=== PATIENT | male | born 1990 | race Caucasian/White ===

== ENCOUNTER 2019-05-01 05:24 | Emergency (ER) | payer OTHER ==
--- NOTE | 2019-05-01 05:39 | PDOC ---
History of Present Illness - General Chief Complaint: Pain, Acute Stated Complaint: GROIN PAIN Time Seen by Provider: 05/01/19 05:39 History Source: Patient Exam Limitations: No Limitations - History of Present Illness Initial Comments: 05/01/19 06:09 Edward Humphries is a 29y previously healthy M presenting w scrotal pain. 11pm last night, he was laying in bed and had sudden onset L inguinal and L scrotal pain. In November 2018, had similar L inguinal pain lasting 4 months after exercising at gym. Did not take anything for pain. Denies recent trauma, masturbation, sexual activity. Denies fever, vomiting, chest pain, SOB, pyuria, dyuria, hemauria, diarrhea, constipation. Past History - Past Medical History Allergies/Adverse Reactions: Allergies Allergy/AdvReac Type Severity Reaction Status Date / Time No Known Allergies Allergy Verified 10/29/15 18:51 Home Medications: Ambulatory Orders Naproxen [Naprosyn -] 500 mg PO BID #14 tablet 10/29/15 COPD: No - Immunization History Immunization Up to Date: Yes - Suicide/Smoking/Psychosocial Hx Smoking History: Never smoked Have you smoked in the past 12 months: No Number of Cigarettes Smoked Daily: 0 Hx Alcohol Use: Yes Drug/Substance Use Hx: No Substance Use Type: Alcohol Review of Systems - Review of Systems Constitutional: No: Chills, Fever, Malaise HEENTM: No: Eye Pain, Ear Pain, Nose Pain, Throat Pain Respiratory: No: Cough, Shortness of Breath Cardiac (ROS): No: Chest Pain, Palpitations, Syncope ABD/GI: No: Abdominal Distended, Constipated, Diarrhea, Nausea, Vomiting : No: Burning, Dysuria, Discharge, Frequency, Flank Pain, Hematuria Musculoskeletal: No: Back Pain, Joint Pain, Joint Swelling, Muscle Pain Integumentary: No: Bruising, Dryness, Erythema Neurological: No: Headache, Numbness, Seizure, Tingling, Tremors Psychiatric: No: Anxiety, Depression Endocrine: No: Excessive Sweating, Flushing, Intolerance to Cold, Intolerance to Heat Hematologic/Lymphatic: No: Anemia, Blood Clots, Easy Bleeding *Physical Exam - Vital Signs Last Vital Signs Temp Pulse Resp BP Pulse Ox 98.2 F 79 18 114/75 99 05/01/19 05:37 05/01/19 05:37 05/01/19 05:37 05/01/19 05:37 05/01/19 05:37 - Physical Exam General Appearance: Yes: Nourished, Appropriately Dressed, Mild Distress HEENT: positive: EOMI, SHANTE, Normal Voice, Hearing Grossly Normal. negative: Scleral Icterus (R), Scleral Icterus (L), Nasal Congestion, Rhinorrhea Respiratory/Chest: positive: Lungs Clear, Normal Breath Sounds. negative: Chest Tender, Respiratory Distress, Crackles, Rales, Rhonchi, Stridor, Wheezing Cardiovascular: positive: Regular Rhythm, Regular Rate, S1, S2. negative: Edema , Murmur Gastrointestinal/Abdominal: positive: Normal Bowel Sounds, Tender (mild tenderness L inguinal region), Flat, Soft. negative: Organomegaly, Distended, Guarding Male Genitalia: positive: normal genitalia, testicular tenderness (mild, left side), other (no rash, edema, erythema of scrotum). negative: discharge, testicular mass, hernia, hematuria Musculoskeletal: negative: CVA Tenderness (R), CVA Tenderness (L) Extremity: positive: Normal Capillary Refill Integumentary: positive: Normal Color Neurologic: positive: Fully Oriented, Alert, Normal Mood/Affect, Normal Response , Responsive. negative: Numbness, Confused, Disoriented ED Treatment Course - LABORATORY CBC & Chemistry Diagram: 05/01/19 06:20 05/01/19 06:20 Medical Decision Making - Medical Decision Making 05/01/19 06:23 preop labs: CBC BMP coags T&S EKG UA, G/C screen, scrotal US tylenol, 1L NS CBC normal Edward Humphries is a 29y previously healthy M presenting w scrotal pain. Concern for testicular torsion vs MSK strain. No hernia evaluated on physical exam. Low suspicion for UTI d/t absence of urinary symptoms. Low suspicion for epididymitis d/t lack of fever, normal WBC, no inflammatory signs. Given tylenol for pain, 1L NS Plan dependent on US. Admit for detorsion if pt has testicular torsion. Signed out to day team *DC/Admit/Observation/Transfer Diagnosis at time of Disposition: Left testicular pain - Discharge Dispostion Condition at time of disposition: Stable - Referrals Referrals: Sandy Denney MD [Primary Care Provider] - - Patient Instructions - Post Discharge Activity
[2019-05-01 05:48] VITALS: BMI 27.1
--- NOTE | 2019-05-01 05:58 | PDOC ---
Attending Attestation - Resident Resident Name: Carmine Ashby - ED Attending Attestation I have performed the following: I have examined & evaluated the patient, The case was reviewed & discussed with the resident, I agree w/resident's findings & plan - HPI HPI: see resident hpi - Physicial Exam PE: 05/01/19 06:10 GENERAL: Awake, in no acute distress HEAD: No signs of trauma EYES: ENT:clear without exudates. Moist mucosa NECK: Normal ROM, LUNGS:. Normal work of breathing. NEUROLOGICAL: Alert, SKIN: Warm, Dry - Medical Decision Making 05/01/19 06:11 05/01/19 06:06 29 yo male with intermittent left testicular pain testicle non tender on exam plan for u/a US, CT if indicated 05/01/19 06:10
[2019-05-01] MEDS ORDERED: ACETAMINOPHEN 1000 MG/100 ML VIAL (NON FORMULARY) IVPB ONE (06:02)
[2019-05-01] MEDS ORDERED: SODIUM CHLORIDE 0.9% 500 ML INFUS.BAG IV ONE (06:03)
[2019-05-01 06:25] LABS: BASO % 0.2 % (0-2.0); EOS % 1.3 % (0-4.5); HEMATOCRIT 45.7 % (35.4-49); HEMOGLOBIN 15.6 GM/dL (11.7-16.9); LYMPH % 34.5 % (8-40); MCH 30.5 pg (25.7-33.7); MCHC 34.1 g/dl (32.0-35.9); MEAN CELL VOLUME 89.3 fl (80-96); MONO % 8.6 % (3.8-10.2); NEUT % 55.4 % (42.8-82.8); PLATELET COUNT 250 K/MM3 (134-434); RBC 5.11 M/mm3 (4.00-5.60); RDW 13.3 % (11.9-15.9); WHITE BLOOD COUNT 8.2 K/mm3 (4.0-10.0)
[2019-05-01 06:46] LABS: BLOOD UREA NITROGEN 12.6 mg/dL (7-18); CALCIUM 9.5 mg/dL (8.5-10.1); CREATININE 1.3 mg/dL (0.55-1.3); POTASSIUM 4.2 mmol/L (3.5-5.1)
[2019-05-01 07:09] LABS: INR 1.06 (0.83-1.09); PROTHROMBIN TIME (PATIENT) 12.5 SEC (9.7-13.0)
--- NOTE | 2019-05-01 07:35 | PDOC ---
*Physical Exam - Vital Signs Last Vital Signs Temp Pulse Resp BP Pulse Ox 97.5 F L 78 18 128/89 97 05/01/19 05:50 05/01/19 05:50 05/01/19 05:50 05/01/19 05:50 05/01/19 05:50 ED Treatment Course - LABORATORY CBC & Chemistry Diagram: 05/01/19 06:20 05/01/19 06:20 - ADDITIONAL ORDERS Additional order review: Laboratory Results 05/01/19 05/01/19 05/01/19 06:20 06:20 06:20 PT with INR 12.50 INR 1.06 PTT (Actin FS) 30.7 Sodium 139 Potassium 4.2 Chloride 103 Carbon Dioxide 30 Anion Gap 7 L BUN 12.6 Creatinine 1.3 Est GFR (CKD-EPI)AfAm 86.67 Est GFR (CKD-EPI)NonAf 74.78 Random Glucose 91 Calcium 9.5 05/01/19 06:20 RBC 5.11 MCV 89.3 MCHC 34.1 RDW 13.3 MPV 8.0 Neutrophils % 55.4 Lymphocytes % 34.5 Monocytes % 8.6 Eosinophils % 1.3 Basophils % 0.2 - Medications Given in the ED: ED Medications Discontinued Medications Generic Name Dose Route Start Last Admin Trade Name Freq PRN Reason Stop Dose Admin Acetaminophen 1,000 mg 05/01/19 06:02 05/01/19 06:34 Ofirmev Injection - IVPB 05/01/19 06:03 1,000 mg ONCE ONE Administration Sodium Chloride 1,000 ml 05/01/19 06:03 05/01/19 06:12 Normal Saline - IV 05/01/19 06:04 1,000 ml ONCE ONE Administration Medical Decision Making - Medical Decision Making 05/01/19 07:35 29 y/o M prsenting with inguinal and scrotal pain -Pending Labs -U/S (scrotal) 05/01/19 07:54 Currently in ultrasound 05/01/19 12:23 Scrotal u/s report delayed by a [employer] issue. Reports could not be uploaded. Radiologist gave results over the phone to . no signs of torsion on U/ S. 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 discharged with instructions to follow up with primary care provider and the relevant at home care instructions. 05/01/19 18:48 *DC/Admit/Observation/Transfer Diagnosis at time of Disposition: Left testicular pain - Discharge Dispostion Disposition: HOME Condition at time of disposition: Stable - Referrals Referrals: Sandy Denney MD [Primary Care Provider] - - Patient Instructions Printed Discharge Instructions: DI for Testicular Pain Additional Instructions: You were seen in the ER for testicular pain. Your urine didn't show signs of an infection Your U/S didn't show signs of torsion or twisting. Follow up with your primary care provider within the next 7 days. Rest and protect your testicles and groin. Stop, change, or take a break from any activity that may be causing your pain or soreness. Put ice or a cold pack on the area for 10 to 20 minutes at a time. Put a thin cloth between the ice and your skin. Wear briefs, not boxers. Briefs help support the injured area. You can use a jock strap if it helps relieve your pain. . You can take over the counter medication for pain relief. Return to the ER if your symptoms worsen or you develop fevers, chills, redness around the testicle. - Post Discharge Activity
[2019-05-01 09:22] LABS: URINE APPEARANCE CLEAR; URINE BILIRUBIN NEGATIVE (NEGATIVE); URINE COLOR YELLOW; URINE GLUCOSE (UA) NEGATIVE (NEGATIVE); URINE KETONE NEGATIVE (NEGATIVE); URINE LEUK ESTERASE NEGATIVE (NEGATIVE); URINE NITRITE NEGATIVE (NEGATIVE); URINE PROTEIN NEGATIVE (NEGATIVE)
[2019-05-01 12:13] VITALS: BP 126/75; PULSE 80; TEMP 98.2
--- NOTE | 2019-05-01 15:27 | EKG ---
Test Reason : Blood Pressure : / mmHG Vent. Rate : 068 BPM Atrial Rate : 068 BPM P-R Int : 154 ms QRS Dur : 094 ms QT Int : 392 ms P-R-T Axes : 041 040 035 degrees QTc Int : 416 ms NORMAL SINUS RHYTHM NORMAL ECG NO PREVIOUS ECGS AVAILABLE Confirmed by FLORESITA SANCHEZ MD ([id number]) on 05/01/2019 3:26:56 PM Referred By: Confirmed By:FLORESITA SANCHEZ MD
== END 2019-05-01 12:05 | disposition home or self-care (01) ==
LOC: JER 05:24
PROC: 3E033NZ Introduction of Analgesics, Hypnotics, Sedatives into Peripheral Vein, Percutaneous Approach (ICD-10-PCS; principal; 2019-05-01)
PROC: 3E0337Z Introduction of Electrolytic and Water Balance Substance into Peripheral Vein, Percutaneous Approach (ICD-10-PCS; 2019-05-01)
DX: N50.812 Left testicular pain (principal)
CPT/HCPCS: 36415; 76870-TC; 80048; 81003; 85025; 85610; 85730; 86850; 86900; 86901; 87491; 87591; 87661; 93005; 93010; 99284-25; J0131

== ENCOUNTER 2023-01-14 16:26 | Emergency (ER) | payer BC, OTHER ==
[2023-01-14] MEDS ORDERED: SODIUM CHLORIDE 0.9% 1000 ML INFUS.BAG IV ONE (16:34)
[2023-01-14 16:47] VITALS: BMI 27.1
[2023-01-14 16:48] LABS: BASO % 0.4 % (0-2.0); EOS % 0.5 % (0-4.5); HEMATOCRIT 44.8 % (35.4-49); HEMOGLOBIN 15.2 GM/dL (11.7-16.9); LYMPH % 22.7 % (8-40); MCH 29.3 pg (25.7-33.7); MEAN CELL VOLUME 86.2 fl (80-96); MEAN PLT VOLUME 8.3 fl (7.5-11.1); MONO % 5.8 % (3.8-10.2); NEUT % 70.6 % (42.8-82.8); PLATELET COUNT 300 10^3/uL (134-434); RDW 13.6 % (11.9-15.9)
[2023-01-14 16:56] LABS: INR 1.09 (0.83-1.09); PROTHROMBIN TIME (PATIENT) 12.6 SEC (9.7-13.0)
[2023-01-14 16:58] LABS: ACTIVATED PTT 24.9 SECONDS (25.2-36.5)
[2023-01-14 17:08] LABS: CHLORIDE 106 mmol/L (98-107); POTASSIUM 3.3 mmol/L (3.5-5.1); SODIUM 141 mmol/L (136-145)
[2023-01-14 17:12] LABS: ALBUMIN 4.3 g/dl (3.4-5.0); ANION GAP 12 MMOL/L (8-16); BLOOD UREA NITROGEN 11.3 mg/dL (7-18); CALCIUM 9.8 mg/dL (8.5-10.1); CO2 23 mmol/L (21-32); GLUCOSE,RANDOM 108 mg/dL (74-106); LIPASE 170 U/L (73-393); MAGNESIUM 1.7 mg/dL (1.8-2.4)
[2023-01-14 17:15] LABS: CREATININE 1.2 mg/dL (0.55-1.3); SGOT/AST 27 U/L (15-37); SGPT/ALT 32 U/L (13-61)
[2023-01-14 17:16] LABS: TOT PROT 7.4 g/dl (6.4-8.2)
[2023-01-14 17:17] LABS: BILIRUBIN,TOTAL 0.8 mg/dL (0.2-1)
[2023-01-14 17:18] LABS: ALK PHOS 47 U/L (45-117)
[2023-01-14 17:20] VITALS: BP 112/61; PULSE 75; RESP 11
[2023-01-14] MEDS ORDERED: MAGNESIUM SULF 50% (8.12 MEQ/2 ML-1 GM VIAL) IVPB ONE (17:21)
[2023-01-14] MEDS ORDERED: POTASSIUM CHLORIDE ORAL LIQUID 20 MEQ/15 ML PO ONE (17:21)
[2023-01-14 17:38] LABS: LACTIC ACID 3.8 mmol/L (0.4-2.0)
[2023-01-14] MEDS ORDERED: MAGNESIUM SULF 50% (8.12 MEQ/2 ML-1 GM VIAL) ONE (17:44)
[2023-01-14] MEDS ORDERED: POTASSIUM CHLORIDE ORAL LIQUID 20 MEQ/15 ML ONE (17:44)
== END 2023-01-14 18:59 | disposition home or self-care (01) ==
LOC: JER 16:26
PROC: 3E033GC Introduction of Other Therapeutic Substance into Peripheral Vein, Percutaneous Approach (ICD-10-PCS; principal; 2023-01-14)
DX: E86.0 Dehydration (principal)
CPT/HCPCS: 36415; 80053; 82550; 82553; 82962; 83605; 83690; 83735; 84484; 85025; 85610; 85730; 93005; 93010; 99284-25